=== PATIENT | male | born 1980 | race Caucasian/White ===

== ENCOUNTER 2021-03-07 18:16 | Inpatient (IN) ==
[2021-03-07] MEDS ORDERED: 0.9 % Sodium Chloride 1,000 ML IVC ONE (21:00)
[2021-03-07] MEDS ORDERED: Isovue-370 500 ML BOTTLE IVP ONE (21:03)
[2021-03-07 21:43] LABS: Hemoglobin 9.3 g/dL (12.9-16.9)
[2021-03-07 21:45] LABS: Hematocrit 27.2 % (37.5-50.1); Mean Corpuscular HGB Conc 34.2 g/dL (31.6-35.5); Mean Corpuscular Hemoglobin 29.7 pg (28.0-33.3); Mean Corpuscular Volume 86.9 fL (83.0-100.0); Mean Platelet Volume 13.3 fL (9.4-12.4); Nucleated Red Blood Cells 1.7 /100 WBC (0); Red Blood Count 3.13 M/mcL (4.19-5.50); Red Cell Distribution Width 12.9 % (11.5-14.5)
[2021-03-07 22:20] LABS: Influenza A PCR Negative (Negative); Influenza B PCR Negative (Negative); Resp. Syncytial Virus PCR Negative (Negative)
[2021-03-07 22:26] LABS: SARS-CoV-2 by PCR (In House) Negative (Negative)
[2021-03-07 22:27] LABS: Platelet Count 16 K/mcL (140-400)
[2021-03-07 22:30] LABS: Platelet Estimate Decreased (Normal)
[2021-03-07 22:33] LABS: Eosinophils # 0.1 K/mcL (0.0-0.6); Lymphocytes # 1.7 K/mcL (0.6-4.6); Monocytes # 0.4 K/mcL (0.0-1.3); Neutrophils # 0.5 K/mcL (1.6-8.9)
[2021-03-07 22:39] LABS: Alanine Aminotransferase 22 Units/L (7-52); Albumin 3.8 g/dL (3.5-5.7); Albumin/Globulin Ratio 1.6 (1.1-2.2); Alkaline Phosphatase 87 Units/L (34-104); Aspartate Amino Transferase 22 Units/L (13-39); BUN/Creatinine Ratio 13 (6-26); Bilirubin,Indirect 0.3 mg/dL (0.0-1.0); Bilirubin,Total 0.3 mg/dL (0.3-1.0); Blood Urea Nitrogen 11 mg/dL (6-20); Calcium 8.8 mg/dL (8.6-10.3); Carbon Dioxide 24 mEq/L (23-29); Chloride 104 mEq/L (98-107); Globulin 2.4 g/dL (2.4-3.5); Glucose 126 mg/dL (70-105); Osmolality,Calculated 283 (280-300); Potassium 3.8 mEq/L (3.5-5.1); Sodium 136 mEq/L (136-145); Total Protein 6.2 g/dL (6.4-8.9); eGFR For African Americans > 60 (> 60); eGFR For Non-African Americans > 60 (> 60)
[2021-03-08] MEDS ORDERED: Piperacillin/Tazobactam 3.375 GM in 0.9 % Sodium Chloride Mini Bag 100 ML IVPB ONE (01:34)
[2021-03-08] MEDS ORDERED: Naloxone 0.4 MG/ML INJ IVP PRN (03:11)
[2021-03-08] MEDS ORDERED: Ondansetron 4 MG/2 ML VIAL IVP PRN (03:11)
[2021-03-08] MEDS ORDERED: 0.9 % Sodium Chloride 1,000 ML IVC SCH (03:15)
[2021-03-08] MEDS ORDERED: 0.9 % Sodium Chloride 1,000 ML IVC ONE (03:19)
[2021-03-08 04:26] LABS: Eosinophils % 0.3 %; Hematocrit 27.1 % (37.5-50.1); Hemoglobin 9.2 g/dL (12.9-16.9); Mean Corpuscular HGB Conc 33.9 g/dL (31.6-35.5); Mean Corpuscular Hemoglobin 29.6 pg (28.0-33.3); Mean Corpuscular Volume 87.1 fL (83.0-100.0); Red Blood Count 3.11 M/mcL (4.19-5.50); Red Cell Distribution Width 13.1 % (11.5-14.5)
[2021-03-08 04:28] LABS: Basophils # 0.1 K/mcL (0.0-0.2); Basophils % 0.7 %; Immature Platelets 9.6 % (1.1-6.1); Lymphocytes # 0.6 K/mcL (0.6-4.6); Lymphocytes % 8.6 %; Monocytes # 2.1 K/mcL (0.0-1.3); Monocytes % 30.8 %; Neutrophils # 3.5 K/mcL (1.6-8.9); Nucleated Red Blood Cells 0.9 /100 WBC (0); Segmented Neutrophils % 50.6 %; White Blood Count 6.9 K/mcL (4.3-11.1)
[2021-03-08 04:42] LABS: Platelet Count 22 K/mcL (140-400)
[2021-03-08 04:45] LABS: BUN/Creatinine Ratio 13 (6-26); Blood Urea Nitrogen 9 mg/dL (6-20); Calcium 8.9 mg/dL (8.6-10.3); Carbon Dioxide 25 mEq/L (23-29); Chloride 108 mEq/L (98-107); Glucose 87 mg/dL (70-105); Magnesium 1.5 mg/dL (1.6-2.6); Osmolality,Calculated 286 (280-300); Phosphorous 3.1 mg/dL (2.7-4.5); Potassium 4.2 mEq/L (3.5-5.1); Sodium 139 mEq/L (136-145); eGFR For African Americans > 60 (> 60); eGFR For Non-African Americans > 60 (> 60)
[2021-03-08 05:29] LABS: Platelet Estimate Marked Decrease (Normal)
[2021-03-08] MEDS ORDERED: Cefepime HCl 2,000 MG in Water for inj. (sterile) 20 ML IVP SCH (08:00)
[2021-03-08] MEDS ORDERED: Acetaminophen 325 MG TABLET PO PRN (08:45)
[2021-03-08 10:47] VITALS: BP 130/75; PULSE 105; TEMP 98.3; O2SAT 94
[2021-03-08] MEDS ORDERED: allopurinoL 300 MG TABLET PO SCH (12:30)
[2021-03-08] MEDS ORDERED: Fluconazole 100 MG TABLET PO SCH (12:30)
[2021-03-08] MEDS ORDERED: Loratadine 10 MG TABLET PO SCH (12:30)
[2021-03-08] MEDS ORDERED: valACYclovir 500 MG TABLET PO SCH (12:30)
[2021-03-08] MEDS ORDERED: Vancomycin 1,500 MG/265 ML IV.SOLN IVPB SCH (14:00)
== END 2021-03-08 12:02 | disposition left against medical advice (07) | DRG 720 ==
LOC: EMEROOARM 18:16 → 3ANU 18:16 → OBSVTOIN 03-08 03:13 → SUATTDRO 03-08 03:13 → 3ANU 03-08 03:39
PROVIDERS: ADMIT Family Medicine; ATTEND Internal Medicine